=== PATIENT | female | born 1965 | race African-American/Black ===

== ENCOUNTER 2023-01-26 09:48 | Inpatient (IN) | payer MEDICAID ==
[~2023-01-26] VITALS: Ht 160 cm; Wt 113.4 kg
[2023-01-26 00:05] VITALS: BP 179/72
[~2023-01-26 09:48] MED LIST: ATEN-60; CLON0.1T; LEVO25TA49; TRIA25CA
[2023-01-26] MEDS ORDERED: SODIUM CHLORIDE 0.9% 1,000 ML IV ONE ×2 (10:00)
[2023-01-26] MEDS ORDERED: cloNIDine HCL 0.1 MG TAB PO ONE (10:15)
[2023-01-26] MEDS ORDERED: KETOROLAC TROMETH 60MG/2ML VIAL IM ONE (10:15)
[2023-01-26 10:22] LABS: Basophils # (auto) 0 10 ^3/uL (0-0.2); Basophils % (auto) 0.3 % (0.0-2.0); Eosinophils # (auto) 0.1 10 ^3/uL (0-0.8); Eosinophils % (auto) 2.5 % (0.0-7.0); Hematocrit 40.2 % (36.0-46.0); Hemoglobin 13.4 g/dL (12.2-16.2); Lymphocytes # (auto) 1.6 10 ^3/uL (0.4-5.4); Lymphocytes % (auto) 26.1 % (10.0-50.0); Mean Corpuscular Hemoglobin 28.9 pg (28.0-32.0); Mean Corpuscular Hgb Conc. 33.4 g/dL (32.0-36.0); Mean Corpuscular Volume 86.5 fL (80.0-100.0); Monocytes # (auto) 0.4 10 ^3/uL (0-1.3); Neutrophils # (auto) 3.9 10 ^3/uL (1.6-8.6); Neutrophils % (auto) 64.1 % (37.0-80.0); Nucleated Red Blood Cells % 0.1 %; Red Blood Cells 4.64 10^6/uL (4.0-5.20); Red Cell Distribution Width 15.3 % (11.8-14.3)
[2023-01-26 10:23] LABS: Urine Bacteria NONE SEEN /hpf (None Seen); Urine Blood Negative /uL (Negative); Urine Specific Gravity 1.002 (1.001-1.035); Urine WBC <1 /hpf (0 - 5)
[2023-01-26 11:06] LABS: Calcium 9.3 mg/dL (8.5-10.1); Potassium 3.9 mmol/L (3.5-5.1)
[2023-01-26 11:11] LABS: BUN/Creatinine Ratio 7.8 (10.0-20.0); Bilirubin, Total 0.7 mg/dL (0.2-1.0); Total Protein 7.7 g/dL (6.4-8.2)
[2023-01-26] MEDS ORDERED: HYDROmorphone HCL 2 MG/ML VL/or syr IV PRN (14:45)
[2023-01-26] MEDS ORDERED: ONDANSETRON HCL 4 MG/2 ML VIAL IV PRN (14:45)
[2023-01-26] MEDS ORDERED: DOCUSATE SOD 100 MG CAP PO PRN (14:45)
[2023-01-26] MEDS ORDERED: hydrALAZINE HCL 20 MG/ML VL IV PRN (15:00)
[2023-01-26] MEDS ORDERED: CLON0.1T PO (19:46)
[2023-01-26] MEDS ORDERED: LABE300T3 PO (19:46)
[2023-01-26] MEDS ORDERED: LISI40TA11 PO (19:46)
[2023-01-26] MEDS: cefTRIAXone 1GM/50ML D5W 50 ML IV SCH (19:50)
[2023-01-26] MEDS: traMADol HCL 50 MG TAB PO PRN (19:50)
[2023-01-26 22:00] VITALS: BP 179/72
[2023-01-26] MEDS ORDERED: cefOXitin 2GM/100ML 100 ML IV SCH (22:00)
[2023-01-26] MEDS: BETAMETHASONE DIPROP0.05% TOPICAL CREAM 15GM TOP SCH (23:02)
[2023-01-26] MEDS: SODIUM CHLORIDE 0.9% 1,000 ML IV SCH (23:49)
[2023-01-26] MEDS: LABETALOL HCL 200 MG TAB PO SCH (23:51)
[2023-01-26] MEDS: cloNIDine HCL 0.1 MG TAB PO SCH (23:51)
[2023-01-27 00:05] VITALS: BP 179/72
[2023-01-27] MEDS ORDERED: LEVO125T7 PO (01:24)
[2023-01-27] MEDS ORDERED: ASPI-543 PO (01:24)
[2023-01-27 01:36] VITALS: BP 179/72
[2023-01-27 05:00] VITALS: BP 152/65
[2023-01-27] MEDS: SODIUM CHLORIDE 0.9% 1,000 ML IV SCH (05:15)
[2023-01-27] MEDS: traMADol HCL 50 MG TAB PO PRN ×2 (05:16→13:10)
[2023-01-27 05:40] LABS: Basophils # (auto) 0 10 ^3/uL (0-0.2); Basophils % (auto) 0.4 % (0.0-2.0); Eosinophils # (auto) 0.1 10 ^3/uL (0-0.8); Eosinophils % (auto) 2.7 % (0.0-7.0); Hematocrit 36.6 % (36.0-46.0); Hemoglobin 12.1 g/dL (12.2-16.2); Lymphocytes # (auto) 1.3 10 ^3/uL (0.4-5.4); Lymphocytes % (auto) 25.9 % (10.0-50.0); Mean Corpuscular Hemoglobin 28.5 pg (28.0-32.0); Mean Corpuscular Hgb Conc. 32.9 g/dL (32.0-36.0); Mean Corpuscular Volume 86.6 fL (80.0-100.0); Monocytes # (auto) 0.5 10 ^3/uL (0-1.3); Monocytes % (auto) 9.3 % (0.0-12.0); Neutrophils # (auto) 3.1 10 ^3/uL (1.6-8.6); Neutrophils % (auto) 61.7 % (37.0-80.0); Nucleated Red Blood Cells % 0.1 %; Red Blood Cells 4.23 10^6/uL (4.0-5.20); Red Cell Distribution Width 15.5 % (11.8-14.3)
[2023-01-27] MEDS ORDERED: LEVOTHYROXINE SODIUM 25 MCG TAB PO SCH (06:00)
[2023-01-27 06:18] LABS: Potassium 3.3 mmol/L (3.5-5.1)
[2023-01-27 06:29] LABS: Albumin 3.5 g/dL (3.4-5.0); BUN/Creatinine Ratio 9.2 (10.0-20.0); Bilirubin, Total 0.7 mg/dL (0.2-1.0); Calcium 8.8 mg/dL (8.5-10.1); Total Protein 6.9 g/dL (6.4-8.2)
[2023-01-27] MEDS: cefTRIAXone 1GM/50ML D5W 50 ML IV SCH (08:43)
[2023-01-27] MEDS: cloNIDine HCL 0.1 MG TAB PO SCH (08:44)
[2023-01-27 09:00] VITALS: BP 174/89
[2023-01-27] MEDS: LABETALOL HCL 200 MG TAB PO SCH (09:22)
[2023-01-27] MEDS ORDERED: ENOXAPARIN SOD 40 MG/0.4 ML SYRINGE SC SCH (10:00)
[2023-01-27] MEDS ORDERED: PANTOPRAZOLE 40 MG/10 ML VIAL INJ IV SCH (10:00)
[2023-01-27] MEDS ORDERED: POTASSIUM EFFERVESENT TAB 25 MEQ PO ONE (10:45)
[2023-01-27] MEDS: BETAMETHASONE DIPROP0.05% TOPICAL CREAM 15GM TOP SCH (11:23)
[2023-01-27] MEDS ORDERED: AMOXICILLIN/CLAVUL 875 MG TAB PO ONE (12:30)
[2023-01-27] MEDS ORDERED: FAMO20TA10 PO (12:33)
[2023-01-27] MEDS ORDERED: AUG875T PO (12:33)
[2023-01-27 13:00] VITALS: BP 137/77
[2023-01-27 14:03] VITALS: BP 138/89
== END 2023-01-27 15:45 | disposition home or self-care (01) | DRG 249 ==
LOC: ER 09:48 → OVERFLOW 14:50 → CENTRAL 22:07
PROVIDERS: ADMIT Nurse Practitioner Family; ATTEND Nurse Practitioner Family
PROC: 5A09357 Assistance with Respiratory Ventilation, Less than 24 Consecutive Hours, Continuous Positive Airway Pressure (ICD-10-PCS; principal; 2023-01-27)
DX: K52.9 Noninfective gastroenteritis and colitis, unspecified (principal); N17.9 Acute kidney failure, unspecified; G47.30 Sleep apnea, unspecified; I10 Essential (primary) hypertension; I16.1 Hypertensive emergency; L03.211 Cellulitis of face; E03.9 Hypothyroidism, unspecified; L30.9 Dermatitis, unspecified; Z91.040 Latex allergy status; Z88.6 Allergy status to analgesic agent; Z90.710 Acquired absence of both cervix and uterus
CPT/HCPCS: 36415; 74176; 80053; 81001; 84484; 85025; 96361; 96372; 96374; C9113; G0378; J0694; J0696; J1885

== ENCOUNTER → 2023-03-26 | Outpatient (CLI) | payer MEDICAID ==
[~2023-03-26] MED LIST changes: +ASPI-543 PO; -ATEN-60; +AUG875T PO; -CLON0.1T; +CLON0.1T PO; +FAMO20TA10 PO; +LABE300T3 PO; +LEVO125T7 PO; -LEVO25TA49; +LISI40TA16 PO; -TRIA25CA
== END | disposition home or self-care (01) ==
LOC: RT 08:38
PROVIDERS: ATTEND Internal Medicine Pulmonary Disease
DX: R06.00 Dyspnea, unspecified (principal); J44.9 Chronic obstructive pulmonary disease, unspecified
CPT/HCPCS: 94060; 94727; 94729

== ENCOUNTER 2025-01-12 07:26 | Inpatient (IN) | payer MEDICAID, OTHER ==
[~2025-01-12] VITALS: Ht 160 cm; Wt 121.0 kg
[~2025-01-12 07:26] MED LIST changes: +ACET-1304 PO; -AUG875T PO; +BRIM0.2S17 EACHEYE; -FAMO20TA10 PO; +FURO40TA4 PO; +LABE200T10 PO; -LABE300T3 PO; +LATA0.008 EACHEYE; -LISI40TA16 PO; +OLME40TA78 PO; +OMEP-448 PO; +ROSU5TAB5 PO; +TRAM50TA2 PO
[2025-01-12] MEDS: ceFAZolin 1GM/50ML 100 ML IV ONE (10:56)
[2025-01-12] MEDS: ACETAMINOPHEN IV 1000 MG/100ML (10MG/ML) IV ONE (12:20)
[2025-01-12] MEDS ORDERED: KETAMINE 50mg/ML 1ml syringe ONE (12:38)
[2025-01-12] MEDS ORDERED: fentaNYL CITRATE 100 MCG/2 ML VL ONE (12:38)
[2025-01-12] MEDS ORDERED: ePHEDrine SULFATE 50 MG/ML AMP ONE (12:39)
[2025-01-12] MEDS ORDERED: PROPOFOL 10 MG/ML 20 ML IV ONE (12:39)
[2025-01-12] MEDS ORDERED: ONDANSETRON HCL 4 MG/2 ML VIAL ONE (12:39)
[2025-01-12] MEDS ORDERED: MORPHINE SULF PF 5 MG/10 ML VIAL ONE ×2 (12:39→12:55)
[2025-01-12] MEDS ORDERED: MIDAZOLAM HCL 2MG/2ML 2ml VIAL (1mg/ml) ONE (12:39)
[2025-01-12] MEDS ORDERED: GLYCOPYRROLATE 0.2 MG/ML 1ML VIAL ONE (12:39)
[2025-01-12] MEDS: CEFEPIME 1GM/ 50ML 50 ML IV ONE (12:53)
[2025-01-12] MEDS: TRANEXAMIC ACID 20 ML ONE (12:53)
[2025-01-12] MEDS: VANCOMYCIN HCL 1000 MG VL ONE (12:58)
[2025-01-12] MEDS: BUPIVACAINE HCL 0.25% P/F 10 ML VIAL ONE (15:21)
[2025-01-12] MEDS: KETOROLAC TROMETH 30 MG/ML 1ML VIAL ONE (15:23)
[2025-01-12] MEDS: ONDANSETRON HCL 4 MG/2 ML VIAL IV ONE (16:45)
[2025-01-12] MEDS ORDERED: OXYCODONE W/ ACETAMINOPHEN 5/325MG TABLET PO PRN (17:00)
[2025-01-12] MEDS ORDERED: ONDANSETRON HCL 4 MG/2 ML VIAL IV PRN (17:00)
[2025-01-12] MEDS ORDERED: ACETAMINOPHEN 325 MG TAB PO PRN ×2 (17:00→17:45)
[2025-01-12] MEDS ORDERED: DOCUSATE SOD 100 MG CAP PO PRN (17:45)
[2025-01-12] MEDS ORDERED: HYDROcodone-ACET 5/325MG TAB PO PRN (17:45)
--- NOTE | 2025-01-12 17:46 | DVHHP2 ---
Admitting Diagnosis: left knee arthritis History of Present Illness Pt is a 59 y.o. woman with hx of left knee arthritis. Pt scheduled for electrive left knee total arthroplasty. Pt had left TKA. Pt is currently awake, alert, resting in bed. BP is elevated. pain is controlled. No fever or chills. PMH: Fatty liver, joanie on cpap, stage 3b ckd, morbid obesity, htn, liver cirrhosis, hypothyroidism, abdomianl wall lump, b/l primary OA of knee, moderate recurrent MDD, DM , HLD Allergy- neosporin, darvocet,norco, vicodin, latex, codeine, morphine social never smoke, no drug use, no alcohol use fhx: breast ca paternal aunt, mother, father, sister, brother DM, mother, father sister, brother have HTN past surgical hx - lumbar 2016, 2018, 2021, detached retina repair 2008, right, left 2018, thyroidectomy 1999, kidney removalleft 1995, hernia repair 2024 left, rotator cuff repair both 2001, cataract extraction b/l2003 Patient Family History: Cardiovascular disease G8 FATHER Diabetes mellitus G8 MOTHER FH: kidney failure G8 MOTHER FH: smoking Hypertension G8 MOTHER G8 FATHER Allergies: Coded Allergies: Latex (Unverified Allergy, Severe, throat closes, hives, edema , 01/07/25) Codeine (Unverified Adverse Reaction, Mild, N/V, 01/07/25) Hydrocodone (Unverified Adverse Reaction, Mild, N/V, 01/07/25) Morphine (Unverified Adverse Reaction, Mild, N/V, 01/07/25) Home Meds Reported Medications Acetaminophen (Tylenol Extra Strength) 500 Mg Tab, 500 MG PO PRN, TAB 01/07/25 Tramadol Hcl (Tramadol Hcl) 50 Mg Tab, 50 MG PO DAILY, TAB 12/25/24 Rosuvastatin Calcium (Crestor) 5 Mg Tab, 5 MG PO DAILY, TAB 12/25/24 Olmesartan Medoxomil (Benicar) 40 Mg Tab, 40 MG PO DAILY, TAB 12/25/24 Latanoprost (LATANOPROST) 0.005 % Cathy, 0.005 % OP DAILY, ML 12/25/24 Omeprazole (Omeprazole Dr) 40 Mg Cap, 40 MG PO DAILY, CAP 12/25/24 Labetalol HCl (Labetalol HCl) 200 Mg Tab, 200 MG PO TID, TAB 12/25/24 Furosemide (Furosemide) 40 Mg Tab, 40 MG PO DAILY, TAB 12/25/24 Levothyroxine Sodium (Levothyroxine Sodium) 125 Mcg Tab, 125 MCG PO QAM for 30 Days, MCG 01/27/23 Aspirin (Aspir-Low) 81 Mg Tab, 81 MG PO DAILY for 30 Days, MG 01/27/23 Clonidine Hydrochloride (Clonidine Hcl) 0.1 Mg Tab, 0.3 MG PO TID, MG 01/26/23 Current Medications Current Medications Medications (Trade) Dose Ordered Sig/Benton Route PRN Reason Start Time Stop Time Status Last Admin Oxycodone/ Acetaminophen (Percocet 5/ 325MG Tablet) 1 tab Q4HP PRN PO MODERATE PAIN (4-6 PAIN SCALE) 01/12/25 17:00 Oxycodone/ Acetaminophen (Percocet 5/ 325MG Tablet) 2 tab Q4HP PRN PO SEVERE PAIN (7-10 PAIN SCALE) 01/12/25 17:00 Cefazolin Sodium 50 ml @ 50 mls/hr Q6H IV 01/12/25 17:00 01/13/25 05:59 Acetaminophen (Tylenol Tablet) 650 mg Q6HP PRN PO MILD PAIN OR TEMP >101 01/12/25 17:00 01/12/25 18:00 DC Oxycodone HCl (OxyCONTIN ER Tablet) 10 mg Q12HR PO 01/12/25 22:00 Ondansetron HCl (Zofran) 4 mg Q6HP PRN IV NAUSEA / VOMITING 01/12/25 17:00 01/12/25 18:00 DC Docusate Sodium (Colace Capsule) 100 mg Q12HR PO 01/12/25 22:00 Furosemide (Lasix Tablet) 40 mg DAILY PO 01/13/25 10:00 Labetalol HCl (Normodyne Tablet) 200 mg TID PO 01/12/25 22:00 Levothyroxine Sodium (Synthroid Tablet) 125 mcg QAM PO 01/13/25 07:00 Patient Own Medication 40 mg DAILY PO 01/13/25 10:00 Pantoprazole Sodium (Protonix Tablet) 40 mg DAILY PO 01/13/25 10:00 Atorvastatin Calcium (Lipitor) 10 mg HS PO 01/12/25 22:00 Hydralazine HCl (Apresoline Injection) 10 mg Q6HP PRN IV SBP>150 01/12/25 17:45 Sodium Chloride (Saline Lock Ns) 10 ml Q8HR IV 01/12/25 22:00 Docusate Sodium (Colace Capsule) 100 mg BIDPRN PRN PO FOR CONSTIPATION 01/12/25 17:45 Acetaminophen (Tylenol Tablet) 650 mg Q6HP PRN PO PAIN SCALE 1-3 OR TEMP>100.4 01/12/25 17:45 Acetaminophen/ Hydrocodone Bitart ([place] 5/325MG Tab) 1 tab Q4HP PRN PO MODERATE PAIN (4-6 PAIN SCALE) 01/12/25 17:45 Ondansetron HCl (Zofran) 4 mg Q4HP PRN IV NAUSEA / VOMITING 01/12/25 17:45 Vital Signs Vital Signs Date Time Temp Pulse Resp B/P (MAP) Pulse Ox O2 Delivery O2 Flow Rate FiO2 01/12/25 10:10 97.1 65 16 174/85 (114) 99 97.1 Physical Exam Generally 59 years old woman, well nourished well developed. No apparent distress HEENT-atraumatic normocephalic Heart-regular rate and rhythm Lungs clear to auscultate bilaterally Abdomen soft, nontender nondistended Musculoskeletal-left knee surgical site covered in dressing clean dry and intact Neuro-AO x3, no focal deficits Results Labs Test 01/12/25 17:28 Range/Units POC Glucose 114 H 70-106 mg/dl Primary Diagnosis left knee OA s/p left knee TKA Plan Follow up with the Orthopedic recommendations Pain control Bowel regimen IV fluids Regular diet Antiemetic PT evaluation Resume home meds Full code SCD for now. DVT prophylax starting tomorrow per orthopedic recommendation No GI prophylaxis needed Plan discussed with: Patient Problems List: (1) Osteoarthritis of left knee Date of Service: Jan 12, 2025 Billing Provider: LATOYA LOVELACE MD Common Visit Codes: [id number] INP/OBS CARE (MOD) LATOYA LOVELACE MD Jan 12, 2025 17:46
[2025-01-12 18:39] VITALS: BP 166/70; PULSE 69; RESP 17; TEMP 97.9; O2SAT 95
[2025-01-12] MEDS ORDERED: MORPHINE SULFATE INJ 2 MG/ml SYRG IV PRN (18:45)
[2025-01-12] MEDS ORDERED: NITROGLYCERIN 0.4 MG SL TAB SL PRN (18:45)
[2025-01-12] MEDS: PREGABALIN CAPSULE 75 MG CAP PO ONE (18:52)
[2025-01-12] MEDS: CELECOXIB 100 MG CAP PO ONE (18:52)
[2025-01-12] MEDS: ceFAZolin 1GM/50ML 50 ML IV SCH (19:04)
[2025-01-12] MEDS: LACTATED RINGER'S 1,000 ML IV SCH (19:04)
[2025-01-12] MEDS: hydrALAZINE HCL 20 MG/ML VL IV PRN (19:11)
[2025-01-12 20:00] VITALS: PULSE 77; RESP 18; O2SAT 99
--- NOTE | 2025-01-12 20:43 | DVH ---
CLINICAL INDICATION: S/P SURGERY TECHNIQUE: 3 radiographic views of the left total knee arthroplasty were obtained. Comparison: None FINDINGS/IMPRESSION: There is no evidence of acute fracture or dislocation. Skin closure say noted anteriorly. The visualized joint space is well maintained. The alignment is anatomical. There is no radiopaque foreign body.
[2025-01-12 21:00] VITALS: BP 123/50; PULSE 77; RESP 18; TEMP 97.3; O2SAT 99
[2025-01-12] MEDS: ATORVASTATIN 20 MG TAB PO SCH (21:57)
[2025-01-12] MEDS: DOCUSATE SOD 100 MG CAP PO SCH (21:57)
[2025-01-12] MEDS: cloNIDine HCL 0.1 MG TAB PO SCH (21:58)
[2025-01-12] MEDS: LABETALOL HCL 200 MG TAB PO SCH (21:59)
[2025-01-12] MEDS: oxyCODONE ER 10 MG TAB PO SCH (22:00)
[2025-01-13] VITALS (10 sets, daily range): BP systolic 103–150; BP diastolic 46–77; PULSE 71–82; RESP 18–20; TEMP 97.6–98.3; O2SAT 95–100
[2025-01-13] MEDS: SODIUM CHLOR 0.9% PF (SALINE LOCK) 10ML VIAL/SYR IV SCH (00:22)
[2025-01-13] MEDS: OXYCODONE W/ ACETAMINOPHEN 5/325MG TABLET PO PRN (02:26)
[2025-01-13] MEDS: LEVOTHYROXINE SODIUM 50 MCG TAB PO SCH (06:13)
[2025-01-13 07:46] LABS: Hemoglobin 10.8 g/dL (12.2-16.2)
[2025-01-13] MEDS: PANTOPRAZOLE 40 MG TAB PO SCH (09:33)
[2025-01-13] MEDS: FUROSEMIDE 40 MG TAB PO SCH (09:34)
[2025-01-13] MEDS: LOSARTAN POTASSIUM 50 MG TAB PO SCH (09:35)
--- NOTE | 2025-01-13 10:35 | DVHPN2 ---
Progress Note Date Seen: Jan 13, 2025 Medical Necessity Reason Pt with a Central, PICC or Fol: No Subjective Patient reports: No new complaints Review of Systems: HEENT:Normal, CVS:Normal, RESPIRATORY:Normal, GI:Normal, :Normal, MSK:Normal, NEURO:Normal Objective vital signs Vital Sign Date Time Temp Pulse Resp B/P (MAP) Pulse Ox O2 Delivery O2 Flow Rate FiO2 01/13/25 09:34 110/60 01/13/25 09:00 97.8 82 20 95 97.8 01/12/25 20:00 Room Air* 0 21 Total Intake and Output 01/12/25 01/12/25 01/13/25 15:00 23:00 07:00 Intake Total 25 ml 1510 ml Balance 25 ml 1510 ml medications Current Medications Medications Dose Ordered Sig/Benton Route Start Time Stop Time Status Last Admin Dose Admin Oxycodone/ Acetaminophen 1 tab Q4HP PRN PO 01/12/25 17:00 Oxycodone/ Acetaminophen 2 tab Q4HP PRN PO 01/12/25 17:00 01/13/25 02:26 2 TAB Oxycodone HCl 10 mg Q12HR PO 01/12/25 22:00 01/13/25 09:35 10 MG Docusate Sodium 100 mg Q12HR PO 01/12/25 22:00 01/13/25 09:30 100 MG Furosemide 40 mg DAILY PO 01/13/25 10:00 01/13/25 09:34 40 MG Labetalol HCl 200 mg TID PO 01/12/25 22:00 01/13/25 06:12 200 MG Levothyroxine Sodium 125 mcg QAM PO 01/13/25 07:00 01/13/25 06:13 125 MCG Losartan Potassium 100 mg DAILY PO 01/13/25 10:00 Pantoprazole Sodium 40 mg DAILY PO 01/13/25 10:00 01/13/25 09:33 40 MG Atorvastatin Calcium 10 mg HS PO 01/12/25 22:00 01/12/25 21:57 10 MG Hydralazine HCl 10 mg Q6HP PRN IV 01/12/25 17:45 01/12/25 19:11 10 MG Sodium Chloride 10 ml Q8HR IV 01/12/25 22:00 01/13/25 06:18 10 ML Docusate Sodium 100 mg BIDPRN PRN PO 01/12/25 17:45 Acetaminophen 650 mg Q6HP PRN PO 01/12/25 17:45 Acetaminophen/ Hydrocodone Bitart 1 tab Q4HP PRN PO 01/12/25 17:45 Ondansetron HCl 4 mg Q4HP PRN IV 01/12/25 17:45 Lactated Ringer's 1,000 ml @ 50 mls/hr Q20H IV 01/12/25 18:30 01/13/25 02:27 50 MLS/HR Clonidine HCl 0.3 mg TID PO 01/12/25 22:00 01/13/25 06:12 0.3 MG Nitroglycerin 0.4 mg Q5MINP PRN SL 01/12/25 18:45 Morphine Sulfate 2 mg Q30M PRN IV 01/12/25 18:45 Hold Examination: GENERAL:Normal, HEENT:Normal, NECK:Normal, LUNGS:Normal, CVS:Normal, ABDOMEN:Normal, MSK:Normal, MSK:Abnormal (left knee dressing), SKIN:Normal, NEURO:Normal, :Normal laboratory and microbiology Laboratory Tests 01/13/25 06:30 Problem List/Assessment/Plan Problem List/Assessment/Plan #1 htn: adjust meds #2 joanie: on cpap #3 morbid obesity #4 ?ckd stage 2/3 #5 hyperlipidemia #6 s/p left knee surgery/djd knee: pt, pain meds advance care planning- full code- time spent 18 mins Plan discussed with: Patient Date of Service: Jan 13, 2025 Billing Provider: ROBB MARQUEZ MD Common Visit Codes: [id number] INP/OBS CARE(HIGH) Secondary Visit Codes: [id number] CARE PLAN 30 MINUTES ROBB MARQUEZ MD Jan 13, 2025 10:35
[2025-01-13 10:48] LABS: Urine Bacteria None Seen /hpf (None Seen)
[2025-01-13 11:05] LABS: Urine Blood Negative /uL (Negative); Urine Clarity Clear (Clear); Urine Color Yellow (Yellow); Urine Protein, UAD 1+ (Negative); Urine Specific Gravity 1.026 (1.001-1.035); Urine Squamous Epithelial Cell FEW /hpf (<5); Urine Urobilinogen Normal (Negative); Urine WBC 4 /HPF (0-5); Urine pH 5.5 (5.0-9.0)
--- NOTE | 2025-01-13 12:37 | DVH ---
EXAM: XY CHEST PORTABLE Indication: htn Technique: Single frontal view of the chest was obtained Comparison: None FINDINGS: Lines and Tubes: None Lungs: No focal consolidation. Pleura: No effusion. No pneumothorax. Cardiomediastinal contours: Unremarkable Bones: No acute osseous abnormality. IMPRESSION: No acute cardiopulmonary disease.
[2025-01-13] MEDS: cloNIDine HCL 0.1 MG TAB PO SCH (14:00)
--- NOTE | 2025-01-13 16:24 | DVHPN2 ---
Progress Note Date Seen: Jan 13, 2025 Medical Necessity Reason Pt with a Central, PICC or Fol: No Subjective Patient reports: No new complaints Objective vital signs Vital Sign Date Time Temp Pulse Resp B/P (MAP) Pulse Ox O2 Delivery O2 Flow Rate FiO2 01/13/25 15:19 97.8 82 20 110/60 95 21 97.8 01/13/25 08:00 Room Air* 0 Total Intake and Output 01/12/25 01/12/25 01/13/25 15:00 23:00 07:00 Intake Total 25 ml 1510 ml Balance 25 ml 1510 ml medications Current Medications Medications Dose Ordered Sig/Benton Route Start Time Stop Time Status Last Admin Dose Admin Oxycodone/ Acetaminophen 1 tab Q4HP PRN PO 01/12/25 17:00 Oxycodone/ Acetaminophen 2 tab Q4HP PRN PO 01/12/25 17:00 01/13/25 02:26 2 TAB Oxycodone HCl 10 mg Q12HR PO 01/12/25 22:00 01/13/25 09:35 10 MG Docusate Sodium 100 mg Q12HR PO 01/12/25 22:00 01/13/25 09:30 100 MG Levothyroxine Sodium 125 mcg QAM PO 01/13/25 07:00 01/13/25 06:13 125 MCG Pantoprazole Sodium 40 mg DAILY PO 01/13/25 10:00 01/13/25 09:33 40 MG Atorvastatin Calcium 10 mg HS PO 01/12/25 22:00 01/12/25 21:57 10 MG Hydralazine HCl 10 mg Q6HP PRN IV 01/12/25 17:45 01/12/25 19:11 10 MG Sodium Chloride 10 ml Q8HR IV 01/12/25 22:00 01/13/25 06:18 10 ML Docusate Sodium 100 mg BIDPRN PRN PO 01/12/25 17:45 Acetaminophen 650 mg Q6HP PRN PO 01/12/25 17:45 Acetaminophen/ Hydrocodone Bitart 1 tab Q4HP PRN PO 01/12/25 17:45 Hold Ondansetron HCl 4 mg Q4HP PRN IV 01/12/25 17:45 Nitroglycerin 0.4 mg Q5MINP PRN SL 01/12/25 18:45 Morphine Sulfate 2 mg Q30M PRN IV 01/12/25 18:45 Hold Clonidine HCl 0.1 mg TID PO 01/13/25 14:00 Examination: GENERAL:Normal, MSK:Abnormal laboratory and microbiology Laboratory Tests 01/13/25 06:30 Problem List/Assessment/Plan Problem List/Assessment/Plan 59 year old female who is s/p left TKA POD 1 1. pain control 2. WBAT LLE 3. CPM 4. Physical therapy 5. d/c planning for home tomorrow Plan discussed with: Patient My Orders My Orders Orders - TOMMIE JEFFERSON NP Procedure Category Date Status Time Oxycodone W/ Acet PHA 01/12/25 In Process 5/325mg Tab (Percocet 17:00 Oxycodone W/ Acet PHA 01/12/25 In Process /325mg Tab (Percocet 17:00 Patient Condition COMORDER 01/12/25 Transmitted Stable 16:49 L Knee 3v Xray XY 01/12/25 Resulted 16:49 Hemoglobin & LAB 01/14/25 Verified Hematocrit 07:00 Hemoglobin & LAB 01/15/25 Verified Hematocrit 07:00 Change Dressing LORETTA 01/12/25 In Process Regular Diet DIET 01/12/25 Transmitted Lunch Knee Surgery Diagnosis DIAGNOSIS 01/12/25 Transmitted 16:49 Vital Signs LORETTA 01/12/25 In Process 16:49 Weight-Bearing LORETTA 01/12/25 In Process Restrictions 16:49 Oxycodone Er Tablet PHA 01/12/25 In Process (Oxycontin Er Tablet 22:00 Docusate Sodium PHA 01/12/25 In Process Capsule (Colace 22:00 CPM PT 01/12/25 Transmitted 16:49 Call/Page LORETTA 01/12/25 In Process Hospitalist/Atten Fo 16:49 Incentive Spirometry ORDERS 01/12/25 Transmitted 16:49 Pt Request For Service PT 01/12/25 Logged 16:49 Admit ADMIT 01/12/25 Transmitted 18:43 * Hospitalist Consult CONS 01/12/25 Transmitted Nitroglycerin PHA 01/12/25 In Process Sublingual (Ntrostat 18:45 Morphine Sulfate PHA 01/12/25 In Process Injection 18:45 Stat Ekg For Chest LORETTA 01/12/25 In Process Pain 18:43 Field Recruiter For LORETTA 01/12/25 In Process 24 Hours 18:43 Emergency Dysrhythmia LORETTA 01/12/25 In Process Protocol 18:43 Rhythm Strips Once LORETTA 01/12/25 In Process Every Shift 18:43 Oxygen By Nasal RT 01/12/25 Transmitted Cannula 18:43 Date of Service: Jan 13, 2025 Billing Provider: LUIS ALBERTO SMYTH MD Common Visit Codes: NOT BILLABLE TOMMIE JEFFERSON NP Jan 13, 2025 16:24
[2025-01-13] MEDS: ONDANSETRON HCL 4 MG/2 ML VIAL IV PRN (19:58)
[2025-01-14] VITALS (7 sets, daily range): BP systolic 112–145; BP diastolic 45–63; PULSE 75–88; RESP 16–20; TEMP 97.7–98.6; O2SAT 91–100
--- NOTE | 2025-01-14 07:35 | DVHPN2 ---
Progress Note Date Seen: Jan 14, 2025 Medical Necessity Reason Pt with a Central, PICC or Fol: No Subjective Patient reports: No new complaints Objective vital signs Vital Sign Date Time Temp Pulse Resp B/P (MAP) Pulse Ox O2 Delivery O2 Flow Rate FiO2 01/14/25 07:13 93 Room Air 0.0 01/14/25 07:13 21 01/14/25 06:55 151/72 01/14/25 05:00 97.7 82 19 97.7 Total Intake and Output 01/13/25 01/13/25 01/14/25 15:00 23:00 07:00 Intake Total 680 ml 750 ml Output Total 250 ml Balance 430 ml 750 ml medications Current Medications Medications Dose Ordered Sig/Benton Route Start Time Stop Time Status Last Admin Dose Admin Oxycodone/ Acetaminophen 1 tab Q4HP PRN PO 01/12/25 17:00 Oxycodone/ Acetaminophen 2 tab Q4HP PRN PO 01/12/25 17:00 01/14/25 03:05 2 TAB Oxycodone HCl 10 mg Q12HR PO 01/12/25 22:00 01/13/25 22:33 10 MG Docusate Sodium 100 mg Q12HR PO 01/12/25 22:00 01/13/25 22:32 100 MG Levothyroxine Sodium 125 mcg QAM PO 01/13/25 07:00 01/14/25 05:56 125 MCG Pantoprazole Sodium 40 mg DAILY PO 01/13/25 10:00 01/13/25 09:33 40 MG Atorvastatin Calcium 10 mg HS PO 01/12/25 22:00 01/13/25 22:33 10 MG Hydralazine HCl 10 mg Q6HP PRN IV 01/12/25 17:45 01/12/25 19:11 10 MG Sodium Chloride 10 ml Q8HR IV 01/12/25 22:00 01/14/25 05:58 10 ML Docusate Sodium 100 mg BIDPRN PRN PO 01/12/25 17:45 Acetaminophen 650 mg Q6HP PRN PO 01/12/25 17:45 Acetaminophen/ Hydrocodone Bitart 1 tab Q4HP PRN PO 01/12/25 17:45 Hold Ondansetron HCl 4 mg Q4HP PRN IV 01/12/25 17:45 01/13/25 19:58 4 MG Nitroglycerin 0.4 mg Q5MINP PRN SL 01/12/25 18:45 Morphine Sulfate 2 mg Q30M PRN IV 01/12/25 18:45 Hold Clonidine HCl 0.1 mg TID PO 01/13/25 14:00 01/14/25 05:55 0.1 MG Examination: GENERAL:Normal, MSK:Abnormal laboratory and microbiology Test 01/14/25 06:08 Range/Units Serum Glucose Pending Problem List/Assessment/Plan Problem List/Assessment/Plan 59 year old female who is s/p left TKA POD 2 1. pain control 2. WBAT LLE 3. CPM 4. Physical therapy 5. clear for discharge home from orthopedic standpoint with the following discharge recommendations: Total Knee Arthroplasty Discharge Instructions Wound Care 1. You will likely have a gel-type dressing over your wound, you may keep this on for 7-14 days after leaving the hospital until your first post-op visit, unless it becomes soiled or your skin becomes irritated. If a wound vac dressing is placed on your knee this is to be left in place for one week and will be changed as needed. After your remove the dressing or wound vac, the home health nurse may place clean dry dressing over your wound. Keep wound covered, clean and dry for two weeks. 2. Octavio will be removed during your initial post-op visit. If you have concerns about our wound, please call the office immediately. If nervous about staple removal can take pain pill one hour prior to appointment. 3. If there is drainage from your wound, change the dressing daily until it stops. If drainage lasts more than 10 days, call our office. 4. Low grade (up to 100 degrees) fever is common for the first week after surgery. You should take your temperature daily. If you have fevers of 101 or more, please call the office. Medication Management 1. You will be discharged with pain medication, a blood thinner (unless you were previously on a blood thinner prior to surgery) and stool softener. Please follow the instructions regarding these medications as provided by your nurse at the hospital upon discharge. 2. Blood clots in the leg are a known complication of surgery. It is very important that you take the medication to protect against clots. Depending on what you are discharged on typically it is Lovenox 40mg daily for 2 weeks or Aspirin 81mg twice daily for 4 weeks. After you finish this, you should then take baby Aspirin (81mg) once daily for 2 weeks. 3. You should restart all of your prescription medications once discharged from the hospital/surgery center unless specifically instructed otherwise. 4. Herbal supplements may be restarted 2 weeks after surgery. 5. If you have been given Coumadin as a blood thinner, please follow up with your claims investigator during the first two weeks after surgery to review medications and overall medical well-being. 6. Please note that narcotic pain medication may cause constipation. Please remember to take stool softeners (Colace) when using narcotics to help reduce the change of constipation. You should not use alcohol together with narcotic medication. Activity 1. You can bear as much weight as you tolerate on your knee unless specifically instructed otherwise. You may use the walking aid which you were discharged with and switch to a cane whenever you feel comfortable doing so. You should use an assistive device until you can walk comfortably without it. Keep in mind that every patient moves at their own speed of recovery so take your time. 2. A physical therapist will visit you at home. 3. Use CPM machine as instructed (6 hours a day) and increase flexion by 5 degrees daily. 4. High impact activity such as jumping, aerobics, tennis, and skiing are not permitted during the first 3 months after surgery. These activities can contribute to accelerated wear and should be done with caution after this time. Discuss this with your surgeon if you have questions. 5. Although a bath or whirlpool is NOT permitted during the first 2-3 weeks, you may shower as soon as you get home from the hospital provided there is no wound drainage. Place a dressing or covering over the wound when you shower. 6. Swimming is not permitted until the wound is healed, which typically occurs approximately 3-4 weeks after surgery. [facility] Instructions 1. Driving is not permitted within the first 2 weeks. 2. Your first postoperative visit will take place 2 weeks after discharge. Please call the office once you are home from the hospital to arrange this appointment. 3. Antibiotic preventative treatment is required before dental or other invasive procedures. Please ask your surgeon about this at your first postoperative visit. If you experience chest pain, shortness of breath or severe painful calf swelling, go to the nearest emergency room to be evaluated. Please call our office once your situation is stabilized. Plan discussed with: Patient Date of Service: Jan 14, 2025 Billing Provider: LUIS ALBERTO SMYTH MD Common Visit Codes: NOT BILLABLE TOMMIE JEFFERSON NP Jan 14, 2025 07:35
[2025-01-14 07:41] LABS: Basophils # (auto) 0 10 ^3/uL (0-0.2); Basophils % (auto) 0.3 % (0.0-2.0); Eosinophils # (auto) 0.2 10 ^3/uL (0-0.8); Eosinophils % (auto) 2.4 % (0.0-7.0); Hematocrit 28.6 % (36.0-46.0); Hemoglobin 9.9 g/dL (12.2-16.2); Lymphocytes # (auto) 1.8 10 ^3/uL (0.4-5.4); Lymphocytes % (auto) 22.4 % (10.0-50.0); Mean Corpuscular Hemoglobin 29.9 pg (28.0-32.0); Mean Corpuscular Hgb Conc. 34.6 g/dL (32.0-36.0); Mean Corpuscular Volume 86.5 fL (80.0-100.0); Monocytes # (auto) 0.8 10 ^3/uL (0-1.3); Monocytes % (auto) 10.2 % (0.0-12.0); Neutrophils # (auto) 5.3 10 ^3/uL (1.6-8.6); Neutrophils % (auto) 64.7 % (37.0-80.0); Platelet Count (auto) 99 10^3/uL (140-450); Red Blood Cells 3.31 10^6/uL (4.0-5.20); Red Cell Distribution Width 13.9 % (11.8-14.3); White Blood Cell 8.2 10^3/uL (4.4-10.8)
[2025-01-14 07:50] LABS: Alanine Aminotransferase 14 U/L (7-40); Albumin 3.9 g/dL (3.2-4.8); Alkaline Phosphatase 71 U/L (46-116); Anion Gap 9 (5-15); Aspartate Aminotransferase 26 U/L (13-40); BUN/Creatinine Ratio 16.6 (10.0-20.0); Bilirubin, Total 0.6 mg/dL (0.2-1.0); Calcium 9.2 mg/dL (8.7-10.4); Carbon Dioxide 26 mmol/L (20-31); Chloride 100 mmol/L (98-107); Potassium 3.7 mmol/L (3.5-5.1); Total Protein 6.3 g/dL (5.7-8.2)
[2025-01-14 07:51] LABS: Blood Urea Nitrogen 28 mg/dL (9-23); Glucose 134 mg/dL (74-106); Sodium 135 mmol/L (136-145)
--- NOTE | 2025-01-14 10:43 | DVHDS2 ---
Discharge Summary Date of Admission Jan 12, 2025 at 17:44 Date of Discharge: Jan 14, 2025 Labs/Diagnostic Data: Laboratory Results Test 01/14/25 06:08 01/13/25 10:40 01/12/25 17:28 White Blood Count 8.2 10^3/uL (4.4-10.8) Red Blood Count 3.31 10^6/uL (4.0-5.20) Hemoglobin 9.9 g/dL (12.2-16.2) Hematocrit 28.6 % (36.0-46.0) Mean Corpuscular Volume 86.5 fL (80.0-100.0) Mean Corpuscular Hemoglobin 29.9 pg (28.0-32.0) Mean Corpuscular Hemoglobin Concent 34.6 g/dL (32.0-36.0) Red Cell Distribution Width 13.9 % (11.8-14.3) Platelet Count 99 10^3/uL (140-450) Mean Platelet Volume 9.1 fL (6.9-10.8) Neutrophils (%) (Auto) 64.7 % (37.0-80.0) Lymphocytes (%) (Auto) 22.4 % (10.0-50.0) Monocytes (%) (Auto) 10.2 % (0.0-12.0) Eosinophils (%) (Auto) 2.4 % (0.0-7.0) Basophils (%) (Auto) 0.3 % (0.0-2.0) Neutrophils # (Auto) 5.3 10 ^3/uL (1.6-8.6) Lymphocytes # (Auto) 1.8 10 ^3/uL (0.4-5.4) Monocytes # (Auto) 0.8 10 ^3/uL (0-1.3) Eosinophils # (Auto) 0.2 10 ^3/uL (0-0.8) Basophils # (Auto) 0 10 ^3/uL (0-0.2) Nucleated Red Blood Cells 0.0 % Sodium Level 135 mmol/L (136-145) Potassium Level 3.7 mmol/L (3.5-5.1) Chloride Level 100 mmol/L (98-107) Carbon Dioxide Level 26 mmol/L (20-31) Anion Gap 9 (5-15) Blood Urea Nitrogen 28 mg/dL (9-23) Creatinine 1.69 mg/dL (0.550-1.02) Glomerular Filtration Rate Calc 34 mL/min (>90) BUN/Creatinine Ratio 16.6 (10.0-20.0) Serum Glucose 134 mg/dL (74-106) Calcium Level 9.2 mg/dL (8.7-10.4) Total Bilirubin 0.6 mg/dL (0.2-1.0) Aspartate Amino Transferase (AST) 26 U/L (13-40) Alanine Aminotransferase (ALT) 14 U/L (7-40) Alkaline Phosphatase 71 U/L (46-116) Total Protein 6.3 g/dL (5.7-8.2) Albumin 3.9 g/dL (3.2-4.8) Urine Color Yellow (Yellow) Urine Clarity Clear (Clear) Urine pH 5.5 (5.0-9.0) Urine Specific [place] 1.026 (1.001-1.035) Urine Protein 1+ (Negative) Urine Ketones 1+ (Negative) Urine Blood Negative /uL (Negative) Urine Nitrite Negative (Negative) Urine Bilirubin Negative (Negative) Urine Urobilinogen Normal mg/dL (Negative) Urine Leukocyte Esterase Negative /uL (Negative) Urine RBC 1 /hpf (0 - 4) Urine Microscopic WBC 4 /HPF (0-5) Urine Squamous Epithelial Cells Few /hpf (<5) Urine Bacteria None seen /hpf (None Seen) Urine Glucose Normal mg/dL (Normal) POC Glucose 114 mg/dl (70-106) Other Laboratory Tests 01/14/25 06:08 Brief Hx & Hospital Course: SEE DICTATED NOTE Condition at Discharge: Fair Final Diagnosis/Problems List LEFT KNEE SURGERY Discharge Disposition: Home Discharge Instruct/Medications Diet: Cardiac 2g Na,low cholest Activity: No Restrictions, As Tolerated Follow Up/Referral: FU WIHT PCP/ORTHO Medications: RESUME HOME MEDS MONITOR HOME BP REST MEDS PER ORTHO Discharge Statement: "Patient was advised to return to the ER or call 911 if any headaches, dizziness, shortness of breath, chest pain, abdominal pain, bleeding, fevers, or worsening of medical condition. Patient was counseled about treatment plan, medications, possible side effects, patientverbalized understanding. All questions were answered to the best of my ability. This discharge took greater then 30 minutes in planning, reviewing documentation, counseling the patient, and discussing with other team members." ASSESSMENT ASSESSMENT Assessment LEFT KNEE SURGERY Date of Service: Jan 14, 2025 Billing Provider: ROBB MARQUEZ MD Common Visit Codes: [id number] DISCH DAY >30min ROBB MARQUEZ MD Jan 14, 2025 10:43
--- NOTE | 2025-01-14 10:52 | DVHDS ---
DATE OF DISCHARGE: 01/14/2025 The patient is a 59-year-old lady who was admitted after she underwent surgery on the left knee for total arthroplasty for DJD. The patient has history of CKD stage III, obstructive sleep apnea, fatty liver, hypertension, and hypothyroidism. HOSPITAL COURSE: The patient had a chest x-ray that showed no acute cardiopulmonary disease. Her creatinine was at about 1.6. The patient's hemoglobin at time of discharge was 9.9. The patient currently has been cleared for discharge by Orthopedics. She will be discharged to resume her home medications. She has been asked however to monitor her blood pressure at home in view of recent surgery. She will also follow up with her primary and Orthopedics. FINAL DIAGNOSES: * Hypertension. * Obstructive sleep apnea. * Chronic kidney disease stage III. * Morbid obesity. * Hypothyroidism. * Hyperlipidemia. * Status post left knee surgery for degenerative joint disease of the knee. Time spent in discharge planning and review of plan with the patient and nursing was 37 minutes. MD JOHN Eagle/DONNA TID: [id number] RECEIPT: [id number]
--- NOTE | 2025-01-15 06:13 | DVHOP2 ---
Operative Report - 2 Report Details Date: 01/12/25 Preop Diagnosis: Left knee osteoarthritis Postop Diagnosis: LEFT KNEE osteoarthritis Surgeon: Blanca SCHERER/ Nicolas Smyth MD Anesthesiologist: Laura MAY Anesthesia: Regional Implant: [employer] see implant log Consent: The patient was informed of the risks and benefits of the procedure. These include but are not limited to complications of anesthesia, postoperative infection, incomplete relief of symptoms, recurrence of symptoms, damage to blood vessels, nerves and tendons, deep venous thrombosis, pulmonary embolism and possible need for repeat surgery in the future. Estimated Blood Loss: 50 cc Name of Procedure Performed Left total knee arthroplasty Procedure Details Procedure Details: FINDINGS: degenerative disease with grade IV changes with valgus deformity INDICATION: This patient has failed non-operative treatments for knee arthritis and is now indicated for a total knee replacement. Preoperatively in the waiting area as well as in the office, I had a long discussion with the patient regarding the plan, the expected outcome, the risks, benefits, and alternatives of surgery. The risks include, but are not limited to, infection (which may require future surgery and removal of implants) , bleeding (which may require a transfusion), damage to nerves, arteries, veins, tendons, muscles and other ad jacent structures. Also discussed the possibilities of intraoperative fractures, implant loosening, heterotopic bone formation, and revision for variety of reasons, and medical complications etc. This was discussed at length and consent has been obtained. DESCRIPTION OF PROCEDURE: In the preoperative holding area, the consent was reviewed and the appropriate extremity was verified by the patient and marked with my initials. The patient was then transferred to the operating theatre. Appropriate anesthesia was induced. All bony prominences were well padded. A time out was performed verifying the side and site of surgery according to standard protocol. Preoperative antibiotics were given 10 minutes prior to tourniquet inflation. Tranexamic was given. A well padded thigh tourniquet was applied. The extremity was then prepped and draped in the usual sterile fashion. The extremity was exsanguinated and the tourniquet was inflated. We then made a mid-line incision, which we continued to the underlying capsular tissue. We performed a medial parapatellar arthrotomy. We periosteally exposed the proximal tibia, excised the anterior fat pad and synovium from the distal aspect of the femur. We then subluxed the patella and brought the knee up into flexion. The lateral meniscus, ACL, and PCL were released. We used the appropriate guide with attached computer navigation to secure the distal femoral cutting block to the femur with pins and completed the distal femoral cut in 0 degrees to the mechanical axis with an oscillating saw. We removed the distal femoral cutting block and turned our attention to the tibia. We used the extramedullary tibial alignment guide with computer navigation to secure the proximal tibial cutting block to the tibia with pins, setting it for a 1mm cut from the more involved side, medially and completed the proximal tibial cut. We then used the spacer block and alignment pedro luis to check the varus- valgus angle of our cuts and the extension gap. We marked our femoral anatomy, including Tom Green's line and the epicondylar axis. Using that as a rotational guide, we used the sizing guide to size our femur properly, using a stylus to ensure there would be no notching. We then used the AP cutting guide to make our anterior and posterior cuts and chamfer cuts with an oscillating saw. We again checked the flexion and extension gaps and coronal balancing. Next, we sized our tibia and secured a baseplate with appropriate rotation with pins. We placed a trial femur in position and com pleted preparation of the notch with reamers and box osteotome and placed a trial notch in position. We used trials to choose our liner size and then placed the liner in place and reduced the knee . We then placed a trial button in place. At this point, we checked our seven parameters: 1) Limb alignment 2) Extension 3) Flexion against gravity 4) Flexion stability 5) Varus-valgus balancing 6) Component rotation 7) Patella tracking We were satisfied with these and removed all trials with the exception of the baseplate. We completed preparation of the tibia with the appropriate reamer and keel impactor and then removed the baseplate. We placed a bone plug in the distal femur and then irrigated and dried all bony surfaces and injected our pain cocktail. Cement with antibiotics was hand-mixed on the back table. We thumb impacted cement into the proximal tibia, distal femur impacted our tibial, femoral and patellar components into position. Excess cement was removed with curettes. We impacted our liner and reduced the knee and held it with axial loading until all cement hardened. We did a lencho-articular cocktail block Once all cement had hardened, we brought the knee back up into flexion and used an osteotome to remove excess cement. We released the tourniquet and achieved hemostasis where necessary. A dilute betadine solution (17.5mL in 500mL saline) was used to wash the joint and left to sit for 3 minutes. This was then irrigated out with copious amounts of pulse lavage. We sprinkled 1g vancomycin powder below the fascia and 1g above the fascia. We copiously irrigated the knee. We re-checked our seven parameters. We closed our capsular incision with a PDS style suture. We irrigated further. We closed the subcutaneous tissue with Vicryl suture and re-approximated the skin with Octavio. We verified all lower extremity compartments were soft and compressible and that we had intact distal pulses. We wrapped the extremity in sterile Webril and olga bandage. The patient was transferred to the recovery room in stable condition. Condition Fair Disposition Still a Patient NICOLAS SMYTH MD Jan 15, 2025 06:13
== END 2025-01-14 14:20 | disposition home or self-care (01) | DRG 470 ==
LOC: SUR 07:26 → OVERFLOW 17:44 → WEST WING 18:36
PROVIDERS: ADMIT Internal Medicine; ATTEND Internal Medicine
PROC: 0SRD0J9 Replacement of Left Knee Joint with Synthetic Substitute, Cemented, Open Approach (ICD-10-PCS; 2025-01-12)
PROC: 5A09357 Assistance with Respiratory Ventilation, Less than 24 Consecutive Hours, Continuous Positive Airway Pressure (ICD-10-PCS; principal; 2025-01-13)
DX: M17.12 Unilateral primary osteoarthritis, left knee (principal); N18.32 Chronic kidney disease, stage 3b; E78.5 Hyperlipidemia, unspecified; G47.33 Obstructive sleep apnea (adult) (pediatric); E66.01 Morbid (severe) obesity due to excess calories; E03.9 Hypothyroidism, unspecified; I12.9 Hypertensive chronic kidney disease with stage 1 through stage 4 chronic kidney disease, or unspecified chronic kidney disease; M21.062 Valgus deformity, not elsewhere classified, left knee; Z82.49 Family history of ischemic heart disease and other diseases of the circulatory system; Z83.3 Family history of diabetes mellitus; F32.9 Major depressive disorder, single episode, unspecified; Z82.3 Family history of stroke; Z80.3 Family history of malignant neoplasm of breast; Z88.5 Allergy status to narcotic agent; Z91.040 Latex allergy status; Z79.82 Long term (current) use of aspirin; Z79.899 Other long term (current) drug therapy; Z68.23 Body mass index [BMI] 23.0-23.9, adult
CPT/HCPCS: 36415; 71045; 73562; 80053; 81001; 82962; 85014; 85018; 85025; 94660; 97110; 97116; 97163; 97530; G0378; J0131; J1885; J2250; J2405; J2704; J3490